=== PATIENT | male | born 1960 ===

== ENCOUNTER 2024-10-30 22:42 | Emergency (ER) | payer SELFPAY ==
--- NOTE | ~2024-10-30 | CT_ITS ---
EXAMINATION: CT abdomen pelvis w con DATE: 10/31/2024 01:43 INDICATION: Vomiting. TECHNIQUE: Computed tomography (CT) of the abdomen and pelvis was performed with 100 mL Omnipaque 350 intravenous contrast. Automated exposure control and iterative reconstruction technique were employe d. The dose-length product was 438.71 mGy-cm. COMPARISON: None. FINDINGS: The visualized portions of the lung bases demonstrate mild atelectasis. No pleural effusion . The heart size is normal. No pericardial effusion. There is mild intrahepatic biliary duct dilatati on, likely secondary to cholecystectomy. The common duct is dilated to 16 mm, likely not clinically s ignificant given the normal liver function tests. The spleen, pancreas, and adrenal glands are normal . There is cortical thinning of the kidneys. There are no dilated loops of bowel. The appendix is nor mal. There is diffuse bladder wall thickening, likely secondary to chronic outlet obstruction from th e mildly enlarged prostate. There are no pathologically enlarged lymph nodes. There is no free intrap eritoneal fluid. There are widespread arterial calcifications. There is a healing fracture of right i schial tuberosity. There is lumbar levoscoliosis and severe spondylosis. There is mild chronic height loss of multiple vertebral bodies. There is severe thoracic spondylosis. IMPRESSION: 1. No specific etiology for the patient's symptoms. Reviewed, dictated and finalized at location A. ER SOLDERER
--- NOTE | ~2024-10-30 | CT_ITS ---
EXAMINATION: CT brain wo con DATE: 10/31/2024 01:39 INDICATION: Head injury. TECHNIQUE: Computed tomography (CT) of the head was performed without intravenous contrast. The mA wa s adjusted according to patient size. Iterative reconstruction technique was employed. The dose-lengt h product was 681.00 mGy-cm. COMPARISON: None FINDINGS: There are scattered areas of low attenuation in the cerebral white matter. There is no intr acranial hemorrhage, acute infarction, or abnormal intracranial mass lesion. The ventricles are annie l in size. The orbits are normal. There is complete opacification of left maxillary sinus with volume loss. There is mild mucosal thickening in other paranasal sinuses. The mastoid air cells are normal. There is left frontal scalp soft tissue swelling. IMPRESSION: 1. Extensive nonspecific cerebral white matter disease, which likely represents chronic small vessel ischemic disease. 2. Silent sinus syndrome involving left maxillary sinus. Reviewed, dictated and finalized at location A. Y HOST/HOSTESS
--- NOTE | ~2024-10-30 | CT_ITS ---
EXAMINATION: CT cervical spine wo con DATE: 10/31/2024 01:38 INDICATION: Head injury. TECHNIQUE: Computed tomography (CT) of the cervical spine was performed without intravenous contrast. Automated exposure control and iterative reconstruction technique were employed. The dose-length pro duct was 237.98 mGy-cm. COMPARISON: None FINDINGS: There is kyphosis of cervical spine. There is 6 degrees dextrocurvature of cervicothoracic spine. There is 2 mm anterolisthesis of C7 on T1. Vertebral body heights are normal. There is mildly decreased disc height at C3 3-C4, moderately decreased disc height at C4-C5 and C5-C6, severely decre ased disc height at C6-C7, and mildly decreased disc height at C7-T1. The following disc levels are s pecifically discussed: C2-C3: There is no uncovertebral joint osteoarthritis. There is severe bilateral facet joint osteoart hritis. There is mild left neural foraminal stenosis. There is no central canal stenosis. C3-C4: There is severe right and moderate left uncovertebral joint osteoarthritis. There is severe ri ght and moderate left facet joint osteoarthritis. There is moderate right neural foraminal stenosis. There is no central canal stenosis. C4-C5: There is mild bilateral uncovertebral joint osteoarthritis. There is moderate right and severe left facet joint osteoarthritis. There is mild left neural foraminal stenosis. There is mild central canal stenosis. C5-C6: There is mild bilateral uncovertebral joint osteoarthritis. There is moderate right and severe left facet joint osteoarthritis. There is mild left neural foraminal stenosis. There is mild central canal stenosis. C6-C7: There is severe bilateral uncovertebral joint osteoarthritis. There is severe bilateral facet joint osteoarthritis. There is moderate bilateral neural foraminal stenosis. There is mild central ca nal stenosis. C7-T1: There is no uncovertebral joint osteoarthritis. There is severe bilateral facet joint osteoart hritis. There is mild bilateral neural foraminal stenosis. There is no central canal stenosis. IMPRESSION: 1. No fracture. 2. Severe cervical spondylosis. Reviewed, dictated and finalized at location A. ON COATER MACHINE OPERATOR
--- NOTE | ~2024-10-30 | XR_ITS ---
EXAMINATION: XR chest 1V portable DATE: 10/31/2024 00:17 INDICATION: Cough. TECHNIQUE: A single frontal view of the chest was obtained. COMPARISON: CT abdomen and pelvis 10/31/2024 FINDINGS: There is no pneumonia, pleural effusion, or pneumothorax. The heart size is normal. IMPRESSION: 1. No acute cardiopulmonary disease. Reviewed, dictated and finalized at location A. ETING ACQUISITION OFFICER
[2024-10-30 22:44] VITALS: BP 123/87; PULSE 91; RESP 17; TEMP 36.4; O2SAT 98
[2024-10-31] MEDS: SODIUM CHLORIDE 0.9% IV 1,000 ML 999 ML IV CONT (00:42)
[2024-10-31] MEDS: ONDANSETRON INJ 4 MG/2 ML VIAL IV PUSH (00:43)
[2024-10-31] MEDS: TETANUS,DIPHTHERIA,AC PERTUSSIS ADULT (0.5 ML) BOOSTRIX IM (00:43)
[2024-10-31 00:52] LABS: Basophils Percent Auto 0.4 % (0.2-1.2); Eosinophils Absolute Auto 0.1 K/mm3 (0-0.3); Hematocrit 39.2 % (42.0-52.0); Hemoglobin 12.6 g/dL (14.0-18.0); Immature Granulocyte Absolute 0.03 K/mm3 (0.00-0.031); Immature Granulocyte Percent A 0.4 % (0-0.5); Lymphocytes Absolute Auto 0.45 K/mm3 (0.9-3.2); Lymphocytes Percent Auto 5.8 % (18.3-44.2); Mean Corpuscular HGB Conc 32.1 g/dl (32-36); Mean Corpuscular Hemoglobin 33.2 pg (26-34); Mean Corpuscular Volume 103.2 fl (80-100); Mean Platelet Volume 10.3 fl (7.4-10.4); Monocytes Absolute Auto 0.4 K/mm3 (0.1-0.6); Monocytes Percent Auto 5.4 % (2.6-8.5); Neutrophils Absolute Auto 6.7 K/mm3 (1.3-6.7); Platelet Count Result 174 k/mm3 (150-375); Red Cell Distribution Width 11.5 % (11.5-14.5); White Blood Count 7.7 K/mm3 (4.5-10.0)
[2024-10-31 00:58] LABS: Alanine Aminotransferase 28 U/L (6-50); Albumin Level 3.6 g/dL (3.5-5.1); Alkaline Phosphatase 89 U/L (38-126); Anion Gap 6 mmol/L (4-12); Aspartate Amino Transferase 29 U/L (17-59); Bilirubin,Total 0.7 mg/dL (0.2-1.3); Blood Urea Nitrogen 22 mg/dL (9-20); Calcium 7.8 mg/dL (8.4-10.2); Carbon Dioxide 26 mmol/L (22-30); Chloride 109 mmol/L (98-107); Estimated CRCL calculation 74 ml/min; Estimated Glomerular Filt Rate > 60; Glucose 97 mg/dL (65-110); Lipase 56 U/L (23-300); Magnesium 0.9 mg/dL (1.6-2.3); Potassium 3.7 mmol/L (3.4-5.0); Sodium 141 mmol/L (137-145)
[2024-10-31 00:58] LABS: Lactic Acid Reflex 1.3 mmol/L (0.7-2.0)
[2024-10-31 01:02] LABS: Add Urine Microscopic? YES; Appearance Urine Clear (Clear); Bacteria Urine None Seen /hpf; Bilirubin Urine Negative (Negative); Blood Urine Negative (Negative); Color Urine Yellow (Yellow); Glucose Urine UA Negative (Negative); Ketones Urine Trace mg/dL (Negative); Leukocyte Esterase Ur Negative LEU/UL (Negative); Mucus Urine Present /lpf; Need Manual Microscopic Reviewed; Nitrate Urine Negative (Negative); Protein Urine 1+ mg/dL (Negative); RBC Urine 0-2 /hpf (0-2); Specific Grav Ur 1.023 (1.001-1.035); Squamous Epithelial Cell Urine None Seen /hpf (Few); Urobilinogen Urine 0.2 mg/dL (<2.0); WBC Urine 0-5 /hpf (0-3)
[2024-10-31 01:09] LABS: Troponin I < 0.012 ng/mL (0.000-0.034)
[2024-10-31 01:14] LABS: Procalcitonin 0.1 ng/mL
[2024-10-31 01:23] LABS: Influenza A QL RT-PCR Negative (Negative); Influenza B QL RT-PCR Negative (Negative); RSV RNA, RT-PCR Negative (Negative); SARS-CoV-2 RNA PCR Negative (Negative)
[2024-10-31] MEDS: MAGNESIUM SULF 2 GM/WATER 50ML 2 GM/50 ML BAG IVPB (01:53)
--- NOTE | 2024-10-31 03:09 | ED_ITS ---
HPI - General Adult General Chief complaint: Nausea/Vomiting/Diarrhea Stated complaint: fall, vomiting Time Seen by Provider: 10/30/24 23:12 History of Present Illness HPI narrative: Patient is a 62-year-old gentleman who presents emergency department with chief complaint of vomiting and fall. The patient is resident of [place] patient was vomiting and then took a shower fell in the shower and struck his head the patient reports to a small laceration has had they were not sure whether the patient had loss of consciousness the patient is unable to provide history as he is alert oriented x1 at baseline Related Data Allergies Allergy/AdvReac Type Severity Reaction Status Date / Time No Known Allergies Allergy Verified 10/30/24 22:49 Review of Systems 2 Review of Systems: A 10 system review of systems was completed on the patient and is negative except for what is stated in the HPI. Nursing and ancillary documentation was reviewed. Exam 2 Narrative: GENERAL: Well-appearing, well-nourished, and in no acute distress. HEAD: Normocephalic, small laceration on left forehead. EYES: PERRLA and EOMI. ENT: Nares clear, no rhinorrhea or epistaxis. Mucous membranes moist. NECK: Supple. CHEST: Clear to auscultation. No respiratory distress. HEART: Regular rate and rhythm. No murmur heard. Normal peripheral pulses. ABDOMEN: Soft, nontender, nondistended, normal active bowel sounds. EXTREMITIES: Normal range of motion. No edema. SKIN: Warm, dry, no rash. NEURO: No focal deficits. Alert and oriented x3. PSYCH: Normal mood and affect. Course Vital Signs Vital signs: Vital Signs Temperature 36.4 C L 10/30/24 22:44 Pulse Rate 91 10/30/24 22:44 Respiratory Rate 17 10/30/24 22:44 Blood Pressure 123/87 10/30/24 22:44 Pulse Oximetry 98 10/30/24 22:44 Oxygen Delivery Room Air 10/30/24 22:44 Temperature 36.4 C L 10/30/24 22:44 Pulse Rate 81 10/31/24 03:49 Respiratory Rate 17 10/31/24 03:49 Blood Pressure 122/79 10/31/24 03:49 Pulse Oximetry 96 10/31/24 03:49 Oxygen Delivery Room Air 10/30/24 22:44 Procedures Laceration Laceration 1: Date: 10/31/24 Time: 04:53 Site: face Side (If applicable): left Size (cm): 2 Description: linear Depth: simple, single layer Local Anesthetic: none Pre-repair: wound explored and irrigated ====== Skin Level ====== Skin layer closed with: dermabond ====== Subcutaneous Layer ====== ====== Muscle Layer ====== ====== Tendon Layer ====== Medical Decision Making MDM Narrative Medical decision making narrative: Differential diagnosis includes syncope, dehydration, gastroenteritis, head injury, intracranial hemorrhage Laboratory studies were obtained on the patient showed a normal CBC CMP you showed no acute abnormality magnesium was low patient was given 2 g of magnesium in the emergency department urinalysis showed no evidence UTI COVID flu RSV were negative CT head was negative CT cervical spine was negative CT abdomen pelvis was negative Patient was hydrated is feeling much better the patient will be discharged home to follow-up with his primary care provider Vital Signs Vital Signs: Vital Signs Temperature 36.4 C L 10/30/24 22:44 Pulse Rate 91 10/30/24 22:44 Respiratory Rate 17 10/30/24 22:44 Blood Pressure 123/87 10/30/24 22:44 Pulse Oximetry 98 10/30/24 22:44 Oxygen Delivery Room Air 10/30/24 22:44 Temperature 36.4 C L 10/30/24 22:44 Pulse Rate 81 10/31/24 03:49 Respiratory Rate 17 10/31/24 03:49 Blood Pressure 122/79 10/31/24 03:49 Pulse Oximetry 96 10/31/24 03:49 Oxygen Delivery Room Air 10/30/24 22:44 Lab Data 10/31/24 00:40 10/31/24 00:40 Labs: Lab Results 10/31/24 10/31/24 Range/Units 00:39 00:40 WBC 7.7 (4.5-10.0) K/mm3 RBC 3.80 L (4.6-6.20) M/mm3 Hgb 12.6 L (14.0-18.0) g/dL Hct 39.2 L (42.0-52.0) % MCV 103.2 H (80-100) fl MCH 33.2 (26-34) pg MCHC 32.1 (32-36) g/dl RDW 11.5 (11.5-14.5) % Plt Count 174 (150-375) k/mm3 MPV 10.3 (7.4-10.4) fl Immature Gran % (Auto) 0.4 (0-0.5) % Neut % (Auto) 87.0 H (45.5-73.1) % Lymph % (Auto) 5.8 L (18.3-44.2) % [place] % (Auto) 5.4 (2.6-8.5) % Eos % (Auto) 1.0 (0-4.4) % Baso % (Auto) 0.4 (0.2-1.2) % Lymph # (Auto) 0.45 L (0.9-3.2) K/mm3 [place] # (Auto) 0.4 (0.1-0.6) K/mm3 Eos # (Auto) 0.1 (0-0.3) K/mm3 Baso # (Auto) 0.0 (0.0-0.1) K/mm3 Abs Immat Gran (auto) 0.03 (0.00-0.031) K/mm3 Absolute Neuts (auto) 6.7 (1.3-6.7) K/mm3 Absolute Nucleated RBC 0.000 (0.0-0.012) K/mm3 Nucleated RBC % 0.0 (0.0-0.2) % Sodium 141 (137-145) mmol/L Potassium 3.7 (3.4-5.0) mmol/L Chloride 109 H (98-107) mmol/L Carbon Dioxide 26 (22-30) mmol/L Anion Gap 6 (4-12) mmol/L BUN 22 H (9-20) mg/dL Creatinine 0.87 (0.7-1.3) mg/dL Estim Creat Clear Calc 74 ml/min Estimated GFR > 60 (59 - ) Glucose 97 (65-110) mg/dL Lactic Acid 1.3 (0.7-2.0) mmol/L Calcium 7.8 L (8.4-10.2) mg/dL Magnesium 0.9 L (1.6-2.3) mg/dL Total Bilirubin 0.7 (0.2-1.3) mg/dL AST 29 (17-59) U/L ALT 28 (6-50) U/L Alkaline Phosphatase 89 (38-126) U/L Troponin I < 0.012 (0.000-0.034) ng/mL Total Protein 6.0 L (6.3-8.2) g/dL Albumin 3.6 (3.5-5.1) g/dL Lipase 56 (23-300) U/L Procalcitonin 0.1 ng/mL Urine Color Yellow (Yellow) Urine Appearance Clear (Clear) Urine pH 5.0 (5.0-9.0) Ur Specific [place] 1.023 (1.001-1.035) Urine Protein 1+ H (Negative) mg/dL Urine Glucose (UA) Negative (Negative) mg/dL Urine Ketones Trace H (Negative) mg/dL Ur Blood (Man) Negative (Negative) Urine Nitrate Negative (Negative) Urine Bilirubin Negative (Negative) Urine Urobilinogen 0.2 (<2.0) mg/dL Add Ur Microanalysis Reviewed Leukocyte Esterase Rfl Negative (Negative) ALEX/UL Urine RBC 0-2 (0-2) /hpf Urine WBC 0-5 (0-3) /hpf Ur Squamous Epith Cells None seen (Few) /hpf Urine Bacteria None seen /hpf Urine Casts 3-5 Urine Mucus Present /lpf Influenza A (RT-PCR) Negative (Negative) Influenza B (RT-PCR) Negative (Negative) RSV (RT-PCR) Negative (Negative) SARS-CoV-2 RNA (RT-PCR) Negative (Negative) Discharge Plan Discharge Clinical Impression: Laceration of scalp, Head injury, Fall, Nausea and vomiting Patient Disposition[facility] Condition: Stable Instructions: Antibiotic Form, Head Injury (ED), Acute Nausea and Vomiting (ED), Fall Prevention (ED) Patient Language: [place] Prescriptions: New ondansetron 4 mg tablet,disintegrating 4 mg PO Q8H PRN (Reason: nausea and vomiting) Qty: 10 0RF magnesium oxide 500 mg magnesium tablet 500 mg PO BID 10 Days Qty: 20 0RF Follow-up/Referrals: PHYSICIAN,LIVESTOCK SALES REPRESENTATIVE [Primary Care Provider] - Time of Disposition: 04:56
[2024-10-31 03:49] VITALS: BP 122/79; PULSE 81; RESP 17; O2SAT 96
[2024-10-31 06:23] VITALS: BP 118/72; PULSE 81; RESP 16; O2SAT 97
[2024-10-31 10:10] VITALS: BP 110/75; PULSE 72; RESP 16; O2SAT 99
[2024-10-31 11:48] VITALS: BP 107/67; PULSE 71; RESP 15; O2SAT 98
== END 2024-10-31 12:01 ==
PROVIDERS: Emergency Provider Emergency Medicine
DX: R11.2 Nausea with vomiting, unspecified (principal); S01.01XA Laceration without foreign body of scalp, initial encounter; Z23 Encounter for immunization; Z20.822 Contact with and (suspected) exposure to COVID-19; W18.2XXA Fall in (into) shower or empty bathtub, initial encounter
CPT/HCPCS: 12011; 36415; 70450; 71045; 72125; 74177; 80053; 81001; 83605; 83690; 83735; 84145; 84484; 85025; 87637; 90471; 90715; 96365; 96366; 96374; 99284; J2405; J3475; J7030; Q9967